=== PATIENT | female | born 1950 | race Two or more races ===

== ENCOUNTER 2023-07-10 15:13 | Emergency (ER) | payer MEDICARE, SELFPAY ==
[2023-07-10 15:15] VITALS: BP 163/85
[2023-07-10 15:39] LABS: % Basophils 0.6 % (0-2); % Eosinophils 2.3 % (0-6); % Immature Granulocytes 0.3 % (0-0.5); % Lymphocytes 23.5 % (20.5-51.1); % Monocytes 8.5 % (1.7-9.3); % Neutrophils 64.8 % (42.2-75.2); Absolute Eosinophils 0.2 10^3/uL (0-0.7); Absolute Lymphocytes 1.7 10^3/uL (1.2-3.4); Absolute Monocytes 0.6 10^3/uL (0.1-0.6); Absolute Neutrophils 4.6 10^3/uL (1.4-6.5); Hematocrit 39.1 % (37.0-47.0); Hemoglobin 13.2 g/dL (12.0-16.0); Mean Corp Hgb Conc. 33.8 g/dL (33.0-37.0); Mean Corpuscular Hgb 28.8 pg (27.0-31.0); Mean Corpuscular Volume 85.2 fL (81.0-99.0); Mean Platelet Volume 9.3 fL (7.4-10.4); Nucleated Red Blood Cells % 0 %; Platelet Count 245 10^3/uL (130-400); Red Blood Cell Count 4.59 10^6/uL (4.20-5.40); Red Cell Dist. Width 12.8 % (11.5-14.5)
[2023-07-10 15:49] LABS: ALT (SGPT) 31 U/L (0-35); AST (SGOT) 41 U/L (14-36); Alkaline Phosphatase 120 U/L (38-126); Blood Urea Nitrogen 16 mg/dl (7-17); Calcium 9.3 mg/dl (8.4-10.2); Carbon Dioxide 26 mmol/L (22-30); Chloride 106 mmol/L (98-107); Glucose 173 mg/dl (70-99); Potassium 4.3 mmol/L (3.5-5.1); Sodium 136 mmol/L (135-145); Total Bilirubin 0.4 mg/dl (0.2-1.3); Total Protein 6.8 g/dl (6.3-8.2); eGFR > 60.00
[2023-07-10 15:53] LABS: COVID-19 Antigen Negative (Negative)
[2023-07-10 15:59] LABS: Troponin I < 0.012 ng/ml
--- NOTE | 2023-07-10 18:24 | ED.GENMED ---
History of Present Illness
General
Chief Complaint: Breathing Problem
Source: patient
Exam Limitations: none
Time Seen by Provider: 07/10/23 17:54
Travel History
Have you had any contact with someone who has COVID-19?: No
Do you have any symptoms of coronavirus? Fever > 100 degrees, chills, cough, shortness of breath, sore throat, loss of taste or smell, muscle aches, or headache?: No
History of Present Illness
History of Present Illness:
This is a 72 year old female that comes in with c/o SOB. States that she felt today it was hard for her to breath. States that her pulse ox was good but she felt like she couldn't get a full breath in. States that she went up the stairs and she
felt like she was going to pass out. 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 States that 2 weeks ago she also had trouble breathing and they felt it was due to her spinal pain. States that she has also been tired for
a little while. States that she has a headache, feels lightheaded and SOB. Denies any fever, chills, chest pain, abd pain, nausea, vomiting, diarrhea, urinary burning.
Past History
Past History
ED Past Medical History: Asthma, Fibromyalgia, GERD, HTN and Other (migraines, DVT, IBS,)
ED Past Surgical History: Gynecological (tubal) and Orthopedic (Left rotator cuff)
Social History
Tobacco: Former smoker
Alcohol: None
Drug: None
Personal:
Living: with family
Employment: Not employed (states has not been able to work since [facility] 10/17/2017 due to chronic back pain)
Family History
Family History: Other
Review of Systems
Review of Systems
All Other Systems: ROS reviewed and negative except as documented in HPI and ROS
Constitutional: Reports fatigue; Denies fever or chills
EENT: Reports no symptoms
Respiratory: Reports trouble breathing; Denies cough
Cardiac: Reports no symptoms; Denies chest pain
ABD/GI: Denies abdominal pain, nausea, vomiting or diarrhea
: Reports no symptoms; Denies dysuria, frequency or urgency
Musculoskeletal: Reports no symptoms
Skin: Reports no symptoms
Neurological: Reports headache and other (Lightheaded); Denies dizzy
Psychiatric: Reports no symptoms
Phy Exam
General Physical Exam
General Presentation: no apparent distress
General age: appears stated age
General Skin: warm and dry
General Habitus: elderly
General Mental: alert
General Hydration: appears well hydrated
ENT Exam
ENT Exam: TM's normal, pharynx normal and neck supple
Eye Exam
Eye Exam: EOMI
Cardiovascular Exam
Cardiovascular Exam: regular rate/rhythm, no edema, no murmur and normal peripheral pulses
Pulmonary Exam
Pulmonary Exam: lungs clear, no respiratory distress, no rales, chest non tender, no crackles, no rhonchi, no wheezing and no cough
Gastrointestinal Exam
Gastrointestinal Exam: normal bowel sounds, non tender, soft, no organomegaly, no pulsatile mass and non distended
Musculoskeletal Exam
Musculoskeletal Exam: full ROM and no edema
Skin Exam
Skin Exam: normal color, warm/dry, no rash and no petechia
Psychiatric Exam
Psychiatric Exam: normal mood/affect
Scores
Heart Failure Risk
Heart Failure Risk Score: Not Applicable
Course
Orders/Labs/Results
Orders:
Orders
07/10/23 15:18
Chest [CR Chest - 2 Views ] Urgent
Comment:
Reason For Exam: sob
07/10/23 15:20
Electrocardiogram (*1) Urgent
Reason for Study: Shortness of Breath
EKG- Treatment ONCE
07/10/23 15:29
COVID-19 Antigen Urgent
Source: Nasal Swab
Complete Blood Count/With Diff Urgent
Comprehensive Metabolic Panel Urgent
Troponin I Urgent
07/10/23 18:11
CT Head W/o Iv Contrast Urgent
Comment:
Reason For Exam: Lightheaded, Headache
0.9% Sodium Chloride 1000 ml [Nss] 1,000 ml IV BOLUS
07/10/23 18:24
D-Dimer Urgent
07/10/23 19:23
Urinalysis Reflex To Culture Urgent
Date Specimen was Collected: 07/10/23
Time Specimen was Collected: 19:18
Urine Microscopic Reflex Cult Urgent
07/10/23 19:28
CT Chest Pe Study Urgent
Comment:
Reason For Exam: SOB, elevated D-dimer
Abnormal Lab Results
07/10/23 07/10/23 07/10/23
15:29 18:24 19:23
D-Dimer 1.04 H ug/mlFEU
(0.00-0.50)
Glucose 173 H mg/dl
(70-99)
AST 41 H U/L
(14-36)
Ur Occult Blood Reflex 1+ A
(Negative)
Leukocyte Esterase Rfl Trace A
(Negative)
Urine RBC 7-10 A /HPF
(0-2)
07/10/23 15:29
07/10/23 15:29
Glucose nonfasting. AST slightly elevated. Troponin <0.012, COVID Negative,
Vital Signs
Initial and Last Documented VS:
Initial Vital Signs
Temp Pulse Resp BP Pulse Ox
98.4 F 74 22 163/85 100
07/10/23 15:15 07/10/23 15:15 07/10/23 15:15 07/10/23 15:15 07/10/23 15:15
Last Documented Vital Signs
Temp Pulse Resp BP Pulse Ox
98.4 F 74 22 163/85 100
07/10/23 15:15 07/10/23 15:15 07/10/23 15:15 07/10/23 15:15 07/10/23 15:15
MDM/Problems Addressed
Differential Diagnosis Includes:
New Onset Diabetic, fatigue
MDM/Problems Addressed:
This is a 72 year old female that comes in with c/o fatigue and SOB. States that today she felt like she couldn't take a deep breath. States that when she went up the steps she felt like she was going to pass out. States that she has been tired for
severeal days.
Will check labs. Chest x-ray, CT head, give IV fluids.
Back to see patient. Explained that her D-dimer is elevated. Her chest x-ray is normal but this does not show any PE's. Will get CT of the chest.
Back over to see patient. Explained that the CT of her chest is normal. There is no PE but she does have some atelectasis. Encouraged patient to try and take deep breaths. Explained that her fatigue may be due to her Fibromyalgia. Also explained
that her blood sugar is elevated. States that she is pre diabetic. Will get Finger stick to see if BS came down. Will have patient follow up with the family doctor. Patient to return with any concerns.
Chronic conditions affecting care: Other (Fibromyalgia, )
Acute Exacerbation and/or Progression of Chronic Illness: Other (Fibromyalgia)
*Radiology
Radiology exam reviewed: radiology read reviewed (Chest- NO evidence of active cardiopulmonary disease CT chest-Examination is negative for PE. Mild to moderate dependent atelectasis in the posterior lower lungs. CT head-NO evidence of acute
intracranial abnormality)
*Pulse Oximetry
Patient hypoxic: no
*EKG
Interpreted by ED Provider?: Yes
Heart Rate: 69
Rate: normal
Rhythm: sinus
[place]: left axis deviation
Interval: normal interval
QRS Pattern: normal QRS
Ischemia: no ischemia
*Express Manager Interpretation
Rate: Express Manager- N/A
*Critical Care Note
Total Time (30-74mins, 75-104mins- exclusive of procedures): Not Applicable
ED Attending Note
-
Portions of this chart may have been created with voice recognition software.� Occasional wrong word or��sound alike� substitutions may have occurred due to the inherent limitations of voice recognition software.
Discharge Plan
Departure
Patient Disposition: Home (Routine Discharge)
Date of Disposition: 07/10/23
Time of Disposition: :29
Patient with high blood pressure during this ER visit?: Yes
Condition: Good
Covid-19: Negative COVID-19
Discharge Problem:
Fatigue, Dyspnea
Instructions: Fatigue (DC), Shortness of Breath (Dyspnea) (DC), BLOOD PRESSURE
Prescriptions:
No Action
montelukast [Singulair] 5 MG tablet,chewable
10 mg PO HS
oqdijnstat-weyupfwgaouma-xprs 1 TAB tablet
1 tab PO Q4HPRN PRN (Reason: FRANKLIN)
lisinopril 5 MG tablet
10 mg PO HS
albuterol sulfate 1 PUFF HFA aerosol inhaler
1 puff inhalation R Q4HPRN PRN (Reason: sob) 30 Days Qty: 1 0RF
albuterol sulfate 2.5 MG/3 ML solution for nebulization
2.5 mg inhalation R Q4HPRN PRN (Reason: sob)
simvastatin 10 MG tablet
10 mg PO HS
sucralfate 1 GRAM tablet
1 g PO ACHS
cyclobenzaprine 10 MG tablet
10 mg PO TIDPRN PRN (Reason: neck pain)
fluticasone propion-salmeterol [Advair Diskus] 1 DISK blister with device
1 puff inhalation DAILY
pantoprazole 40 MG tablet,delayed release (DR/EC)
40 mg PO DAILY Qty: 30 0RF
promethazine-codeine 6.25-10 mg/5 mL syrup
5 ml PO Q4H PRN (Reason: cough) Qty: 118 0RF
Referrals:
Bhanu Vallejo, [Family Provider] - Follow up in 2-3 days
Activity Restrictions/Additional Instructions:
As discussed, your blood work shows that your blood sugar is elevated but your repeat finger stick was normal after some fluid. You have been given IV fluids here to help bring this down. You are negative for COVID and your Urine is negative for
infection. Your CT of the head is negative for any acute process and our Chest x-ray is normal. Please increase your water intake to 8-8oz glasses daily. Your Fibromyalgia may be causing your Fatigue and dizziness. Please follow up with the family
doctor in the next 2-3 days. IF YOU HAVE ANY OTHER CONCERNS PLEASE RETURN TO THE EMERGENCY ROOM.
Interventions
Interventions:
*Risk Screen - Suicide Last Done: 07/10/23 18:16
*General Assessment Last Done: 07/10/23 18:16
*Neglect/Abuse Screening Last Done: 07/10/23 18:16
ED- Fall Risk Assessment Last Done: 07/10/23 20:04
ED- Cardiac Assessment Last Done: 07/10/23 20:04
ED- Pulmonary Assessment Last Done: 07/10/23 20:04
[2023-07-10] MEDS: NSS 1000 IV (18:33)
[2023-07-10 18:48] LABS: D-Dimer 1.04 ug/mlFEU (0.00-0.50)
[2023-07-10 19:34] LABS: Urine Albumin Negative (Neg - Trace); Urine Bilirubin Negative (Negative); Urine Character Clear (Clear); Urine Color Yellow; Urine Glucose Negative (Negative); Urine Ketone Negative (Negative); Urine Leukocyte Trace (Negative); Urine Nitrite Negative (Negative); Urine Occult Blood 1+ (Negative); Urine Urobilinogen Negative (Neg - 1+)
[2023-07-10 19:48] LABS: Urine Squamous Cell 0-2 /LPF (Few); Urine White Cell 0-2 /HPF (0-5)
[2023-07-10 21:41] LABS: Glucose - Point of Care 96 mg/dl (70-99)
== END 2023-07-10 21:45 | disposition home or self-care (01) ==
LOC: EMR 15:13
PROVIDERS: Clinical Nurse Specialist Family Health; Emergency Medicine; EMERGENCY PHYSICIAN Emergency Medicine; FAMILY PHYSICIAN Family Medicine
DX: R53.83 Other fatigue (principal); R06.09 Other forms of dyspnea; I10 Essential (primary) hypertension; M79.7 Fibromyalgia; E11.9 Type 2 diabetes mellitus without complications; Z87.891 Personal history of nicotine dependence
CPT/HCPCS: 99285; 70450; 71046; 71275; 80053; 81003; 81015; 82962; 84484; 85025; 85379; 87811; 93005; Q9967

== ENCOUNTER → 2024-01-02 16:12 | Outpatient (REF) | payer MEDICARE, SELFPAY | LOC: RAD 16:12 | PROVIDERS: ATTENDING PHYSICIAN Family Medicine | DX: M25.561 Pain in right knee (principal); M25.562 Pain in left knee | CPT/HCPCS: 73564 ==

== ENCOUNTER → 2024-01-16 15:23 | Outpatient (REF) | payer MEDICARE, SELFPAY | LOC: WDC 15:23 | PROVIDERS: ATTENDING PHYSICIAN Family Medicine | DX: Z12.31 Encounter for screening mammogram for malignant neoplasm of breast (principal) | CPT/HCPCS: 77063; 77067 ==

== ENCOUNTER → 2024-01-27 06:35 | Day surgery (SDC) | payer MEDICARE, SELFPAY | LOC: GI 06:35 | PROVIDERS: ATTENDING PHYSICIAN Internal Medicine | DX: Z12.11 Encounter for screening for malignant neoplasm of colon (principal); K57.30 Diverticulosis of large intestine without perforation or abscess without bleeding; K64.9 Unspecified hemorrhoids; D12.0 Benign neoplasm of cecum; D12.3 Benign neoplasm of transverse colon | CPT/HCPCS: 45385; 45381; 88305 ==

== ENCOUNTER → 2024-02-28 19:47 | Outpatient (REF) | payer MEDICARE, SELFPAY | LOC: PAVMRI 19:47 | PROVIDERS: ATTENDING PHYSICIAN Family Medicine | DX: M25.561 Pain in right knee (principal); M25.562 Pain in left knee | CPT/HCPCS: 73721 ==

== ENCOUNTER → 2024-04-06 15:21 | Outpatient (REF) | payer MEDICARE, SELFPAY | LOC: RAD 15:21 | PROVIDERS: ATTENDING PHYSICIAN Orthopaedic Surgery; FAMILY PHYSICIAN Family Medicine | DX: M25.562 Pain in left knee (principal); M79.662 Pain in left lower leg | CPT/HCPCS: 93971 ==

== ENCOUNTER → 2024-04-15 07:56 | Outpatient (REF) | payer MEDICARE, SELFPAY | LOC: HWRAD 07:56 | PROVIDERS: ATTENDING PHYSICIAN Nurse Practitioner Adult Health; FAMILY PHYSICIAN Family Medicine | DX: M81.0 Age-related osteoporosis without current pathological fracture (principal) | CPT/HCPCS: 77080 ==

== ENCOUNTER → 2024-05-06 10:05 | Outpatient (REF) | payer MEDICARE, SELFPAY | LOC: HWRAD 10:05 | PROVIDERS: ATTENDING PHYSICIAN Nurse Practitioner Adult Health; FAMILY PHYSICIAN Family Medicine | DX: R10.2 Pelvic and perineal pain (principal) | CPT/HCPCS: 76830; 76856 ==

== ENCOUNTER → 2024-06-03 11:03 | Outpatient (REF) | payer OTHER, SELFPAY | LOC: WDC 11:03 | PROVIDERS: ATTENDING PHYSICIAN Nurse Practitioner Adult Health; FAMILY PHYSICIAN Family Medicine | DX: R92.2 Inconclusive mammogram (principal) | CPT/HCPCS: 76641 ==

== ENCOUNTER 2024-06-10 12:43 | Emergency (ER) | payer OTHER, SELFPAY ==
[2024-06-10 12:53] VITALS: BP 176/79
[2024-06-10 13:52] VITALS: BP 152/84; BMI 23.9
--- NOTE | 2024-06-10 14:35 | EDRN ---
Shilpi SALOMON in room w/ pt at this time.
[2024-06-10] MEDS: FIORICET 1 TAB PO (15:18)
[2024-06-10] MEDS: TORADOL 15 MG IM (15:18)
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
== END 2024-06-10 15:47 | disposition home or self-care (01) ==
LOC: EMR 12:43
PROVIDERS: EMERGENCY PHYSICIAN Student in an Organized Health Care Education/Training Program; FAMILY PHYSICIAN Family Medicine
DX: M25.531 Pain in right wrist (principal); M25.561 Pain in right knee; M25.551 Pain in right hip; M25.552 Pain in left hip; G89.29 Other chronic pain; M54.9 Dorsalgia, unspecified; M79.7 Fibromyalgia; I10 Essential (primary) hypertension; J45.909 Unspecified asthma, uncomplicated; K21.9 Gastro-esophageal reflux disease without esophagitis; Z86.718 Personal history of other venous thrombosis and embolism; Z87.891 Personal history of nicotine dependence; Z87.828 Personal history of other (healed) physical injury and trauma
CPT/HCPCS: 96372; 99284; 73110; 73523; 73564

== ENCOUNTER 2024-12-28 06:18 | Day surgery (SDC) | payer OTHER, SELFPAY ==
[2024-12-25 09:23] LABS: Hematocrit 41.9 % (37.0-47.0); Hemoglobin 13.8 g/dL (12.0-16.0); Mean Corp Hgb Conc. 32.9 g/dL (33.0-37.0); Mean Corpuscular Volume 88.2 fL (81.0-99.0); Platelet Count 260 10^3/uL (130-400); Red Cell Dist. Width 13.0 % (11.5-14.5)
[2024-12-25 12:28] VITALS: BMI 23.2
[2024-12-25 13:24] LABS: Blood Urea Nitrogen 8 mg/dl (7-17); Calcium 9.0 mg/dl (8.4-10.2); Carbon Dioxide 25 mmol/L (22-30); Chloride 106 mmol/L (98-107); Estimated Creatinine Clearance 58 ml/min; Glucose 123 mg/dl (70-99); Potassium 4.6 mmol/L (3.5-5.1); Sodium 139 mmol/L (135-145); eGFR > 60.00
[2024-12-28] VITALS (7 sets, daily range): BP systolic 136–158; BP diastolic 82–91; BMI 23.2
[2024-12-28] MEDS: HEPARIN 5000 UNITS SC (12:48)
[2024-12-28] MEDS: NORMOSOL-R/PLASMALYTE-A 1000 IV (12:49)
[2024-12-28] MEDS: ZOFRAN 4 MG IV (15:18)
[2024-12-28] MEDS: COMPAZINE 5 MG IV (16:12)
== END 2024-12-28 18:12 | disposition home or self-care (01) ==
LOC: SDS 06:18
PROVIDERS: ATTENDING PHYSICIAN Obstetrics & Gynecology; FAMILY PHYSICIAN Family Medicine
DX: N81.2 Incomplete uterovaginal prolapse (principal); N95.8 Other specified menopausal and perimenopausal disorders; N39.3 Stress incontinence (female) (male); N36.41 Hypermobility of urethra
CPT/HCPCS: 57282; 57260; 57288; 36415; 80048; 85027; 86850; 86900; 86901; 93005; C1771

== ENCOUNTER → 2025-02-27 06:55 | Outpatient (REF) | payer OTHER, SELFPAY | LOC: MRI 3T 06:55 | PROVIDERS: ATTENDING PHYSICIAN Orthopaedic Surgery; FAMILY PHYSICIAN Family Medicine | DX: M25.551 Pain in right hip (principal) | CPT/HCPCS: 73721 ==

== ENCOUNTER 2025-04-01 18:02 | Emergency (ER) | payer OTHER, SELFPAY ==
[2025-04-01 18:04] VITALS: BP 197/124
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
== END 2025-04-01 19:57 | disposition home or self-care (01) ==
LOC: EMR 18:02
PROVIDERS: EMERGENCY PHYSICIAN Emergency Medicine; FAMILY PHYSICIAN Family Medicine
DX: S09.90XA Unspecified injury of head, initial encounter (principal); I10 Essential (primary) hypertension; J45.909 Unspecified asthma, uncomplicated; K21.9 Gastro-esophageal reflux disease without esophagitis; M79.7 Fibromyalgia; G43.909 Migraine, unspecified, not intractable, without status migrainosus; K58.9 Irritable bowel syndrome, unspecified; M54.9 Dorsalgia, unspecified; G89.21 Chronic pain due to trauma; Z87.891 Personal history of nicotine dependence; Z86.718 Personal history of other venous thrombosis and embolism; W20.8XXA Other cause of strike by thrown, projected or falling object, initial encounter; Y93.E9 Activity, other interior property and clothing maintenance; Y92.008 Other place in unspecified non-institutional (private) residence as the place of occurrence of the external cause
CPT/HCPCS: 99284; 70450